=== PATIENT | male | born 1960 | race Caucasian/White ===

== ENCOUNTER 2020-07-23 12:12 | Emergency (ER) | payer SELFPAY ==
[~2020-07-23] VITALS: Ht 182.9 cm; Wt 96.0 kg
[~2020-07-23 12:12] MED LIST: CIPROFLOXACN500 MG PO; PRILOSEC20 MG/CAP PO; ZANTAC150 M1 PO; ZOFRAN4 MG/TAB PO
[2020-07-23] MEDS ORDERED: EPIPEN 2-P0.3 MG/0.3 IM (14:37)
[2020-07-23] MEDS ORDERED: PREDNISONE50 MG PO (14:37)
[2020-07-23 14:43] VITALS: BP 133/77
== END 2020-07-23 14:49 | disposition home or self-care (01) | DRG 916 ==
LOC: ED 12:12
DX: T78.40XA Allergy, unspecified, initial encounter (principal); I10 Essential (primary) hypertension; E11.9 Type 2 diabetes mellitus without complications; F17.200 Nicotine dependence, unspecified, uncomplicated; X58.XXXA Exposure to other specified factors, initial encounter